=== PATIENT | female | born 1945 | race Caucasian/White ===

== ENCOUNTER → 2017-02-26 | Outpatient (CLI) | payer MEDICARE ==
--- NOTE | 2017-02-27 12:55 | MM ---
Reason for exam: screening (asymptomatic). Last mammogram was performed 1 year and 11 months ago. History: Patient is postmenopausal. Took hormonal contraceptives for 5 years beginning at age 21. Took estrogen for 1 year beginning at age 51. Physical Findings: A clinical breast exam by your physician is recommended on an annual basis and results should be correlated with mammographic findings. MG 3D Screening Mammo W/Cad Bilateral CC and MLO view(s) were taken. Prior study comparison: April 06, 2015, bilateral MG screening mammo w CAD. February 23, 2012, CAD bilateral diagnostic mammogram. There are scattered fibroglandular densities. There is chronic nodularity bilaterally. However 11:30-12 o'clock nodular focal asymmetry in the right breast has increased in size. Also, asymmetric density anterior lateral left CC view appears more defined and partially disperses on tomosynthesis. Regional calcifications in the left breast are unchanged. ASSESSMENT: Incomplete: need additional imaging evaluation, BI-RAD 0 RECOMMENDATION: Special view mammogram of both breasts. If lesion persists on supplemental views, image directed ultrasound is recommended. [facility] will attempt to contact patient to return for supplemental views and ultrasound if indicated. RAJIV
== END | disposition home or self-care (01) ==
LOC: RADMAMWWP 10:18
PROVIDERS: ATTEND Family Medicine
DX: Z12.31 Encounter for screening mammogram for malignant neoplasm of breast (principal)
CPT/HCPCS: 77063; G0202

== ENCOUNTER → 2017-03-19 | Outpatient (CLI) | payer MEDICARE ==
--- NOTE | 2017-03-20 08:51 | MM ---
Reason for exam: additional evaluation requested from abnormal screening. Last mammogram was performed 1 month ago. History: Patient is postmenopausal. Took hormonal contraceptives for 5 years beginning at age 21. Took estrogen for 1 year beginning at age 51. Physical Findings: Nurse did not find any significant physical abnormalities on exam. MG 3D Work Up W/Cad FRED Bilateral LM view(s) were taken. CC and spot compression MLO view(s) were taken of the left breast. Prior study comparison: February 26, 2017, bilateral MG 3d screening mammo w/cad. April 06, 2015, bilateral MG screening mammo w CAD. February 23, 2012, CAD bilateral diagnostic mammogram. There are scattered fibroglandular densities. The questioned asymmetry on the left breast does not persist. The 12 o'clock nodule may correspond to 2 adjacent nodules on the lateral view of the right breast. These results were verbally communicated with the patient and result sheet given to the patient on 03/19/17. ASSESSMENT: Incomplete: need additional imaging evaluation, BI-RAD 0 RECOMMENDATION: Ultrasound of the right breast. (11-1 o'clock)
--- NOTE | 2017-03-20 09:03 | USB ---
Reason for exam: additional evaluation requested from abnormal screening. History: Patient is postmenopausal. Took hormonal contraceptives for 5 years beginning at age 21. Took estrogen for 1 year beginning at age 51. US Breast Workup Limited RT Right breast ultrasound demonstrates a 0.5 x 0.4 x 0.6cm lesion too small to characterize at 11 o'clock, a 0.7 x 0.4 x 0.6cm mixed lesion at 12 o'clock, a 0.6 x 0.4 x 0.5cm mixed lesion at 10:30 and a 0.5 x 0.4 x 0.5cm lesion too small to characterize at 12 o'clock. All of these small masses have a similar appearance and the 12:00 lesions likely correspond to the mammographic finding. Biopsy of the largest 7mm lesion recommended. These results were verbally communicated with the patient and result sheet given to the patient on 03/19/17. ASSESSMENT: Suspicious, BI-RAD 4 RECOMMENDATION: Surgical consultation and ultrasound core biopsy of the right breast. (12 o'clock 7mm lesion) Called Dr. Arevalo with mammographic findings and has scheduled an appointment for the patient for 03/24/17 at 10:[address] Salcedo. PRELIMINARY REPORT CALLED AND FAXED TO DR. SALCEDO ON 03/20/17 AT 300/TP.
== END | disposition home or self-care (01) ==
LOC: RADMAMWWP 14:19
PROVIDERS: ATTEND Family Medicine
DX: R92.8 Other abnormal and inconclusive findings on diagnostic imaging of breast (principal)
CPT/HCPCS: 76642; G0204; G0279

== ENCOUNTER → 2017-04-14 | Day surgery (SDC) | payer MEDICARE ==
[2017-04-14 12:02] VITALS: RESP 16; BMI 40.8
[2017-04-14 13:08] VITALS: BP 150/62; PULSE 77; TEMP 97.2
--- NOTE | 2017-04-14 15:30 | USB ---
EXAMINATION TYPE: US biopsy breast VAD RT DATE OF EXAM: 04/14/2017 CLINICAL HISTORY: R92.8 Abn Mammogram. TECHNIQUE: Ultrasound guided core biopsy of right breast. COMPARISON: 03/19/2017 FINDINGS: The procedure of ultrasound guided core biopsy was explained to the patient. Benefits, alternatives, and risks were discussed. An informed consent was then obtained. The patient was placed in supine positioning for imaging and for the procedure. The overlying skin was prepped and draped in usual sterile fashion. Lidocaine buffered with bicarbonate was used as anesthetic into the skin and subcutaneous tissue up to area of concern in the right breast. A savanna was made with surgical scalpel. Under ultrasound guidance, a 12-gauge vacuum assisted biopsy gun device was used to obtain 5 core samples. Following this, a biopsy clip was left in lesion. The patient tolerated the procedure well without any immediate complication. The patient was kept in the radiology department for short stay after the procedure and then discharged home in stable condition. IMPRESSION: Successful, uncomplicated ultrasound guided core biopsy of area of concern in the right breast, full pathology results to follow. Pathology Results: Benign BREAST, RIGHT, SITE A 12:00, ULTRASOUND GUIDED CORE BIOPSY: FIBROCYSTIC CHANGE ( STROMAL FIBROSIS, CYST FORMATION, APOCRINE METAPLASIA, ADENOSIS, DUCT HYPERPLASIA AND CALCIFICATIONS). FOCAL HISTIOCYTIC INFLAMMATION WITH PIGMENT SUGGESTIVE OF CYST RUPTURE. Recommendation Follow up mammogram of the right breast in 6 months. RAJIV
--- NOTE | 2017-04-15 07:06 | MM ---
Reason for exam: additional evaluation requested from abnormal screening. Last mammogram was performed 1 month ago. History: Patient is postmenopausal. Took hormonal contraceptives for 5 years beginning at age 21. Took estrogen for 1 year beginning at age 51. MG Diagnostic Mammo RT Wo CAD CC and ML view(s) were taken of the right breast. Prior study comparison: March 19, 2017, bilateral MG 3d work up w/cad FRED. February 26, 2017, bilateral MG 3d screening mammo w/cad. ASSESSMENT: Post procedure mammogram for marker placement RECOMMENDATION: Ultrasound of the right breast in 6 months. PENDING PATHOLOGY RESULTS.
== END ==
LOC: RADUSWWP 11:26
PROVIDERS: ATTEND Surgery
DX: N60.11 Diffuse cystic mastopathy of right breast (principal); N60.81 Other benign mammary dysplasias of right breast; N60.21 Fibroadenosis of right breast; N60.91 Unspecified benign mammary dysplasia of right breast; R92.1 Mammographic calcification found on diagnostic imaging of breast; R92.8 Other abnormal and inconclusive findings on diagnostic imaging of breast; Z78.0 Asymptomatic menopausal state
CPT/HCPCS: 88305; 19083; G0206; A4648; J2001

== ENCOUNTER → 2018-09-01 | Outpatient (CLI) | payer MEDICARE ==
--- NOTE | 2018-09-02 09:25 | MM ---
Reason for exam: additional evaluation requested from prior study. Last mammogram was performed 1 year and 5 months ago. History: Patient is postmenopausal. Benign US biopsy breast VAD RT of the right breast, April 14, 2017. Took hormonal contraceptives for 5 years beginning at age 21. Took estrogen for 1 year beginning at age 51. Physical Findings: Nurse did not find any significant physical abnormalities on exam. MG 3D Diag Mammo W/Cad FRED Bilateral CC and MLO view(s) were taken. Prior study comparison: April 14, 2017, right breast MG diagnostic mammo RT wo CAD. March 19, 2017, bilateral MG 3d work up w/cad FRED. The breast tissue is heterogeneously dense. This may lower the sensitivity of mammography. No suspicious calcifications are seen. There is chronic nodularity bilaterally. There is no dominant lesion. No significant new findings when compared with previous films. These results were verbally communicated with the patient and result sheet given to the patient on 09/01/18. ASSESSMENT: Benign, BI-RAD 2 RECOMMENDATION: Routine screening mammogram of both breasts in 1 year.
== END | disposition home or self-care (01) ==
LOC: RADMAMWWP 12:53
PROVIDERS: ATTEND Family Medicine
DX: R92.8 Other abnormal and inconclusive findings on diagnostic imaging of breast (principal)
CPT/HCPCS: 77066; G0279; 77062

== ENCOUNTER → 2022-03-14 | Outpatient (CLI) | payer MEDICARE ==
--- NOTE | 2022-03-14 11:00 | P.GSHP ---
History of Present Illness H&P Date: 03/14/22 Chief Complaint: Radiographic abnormality right breast Caren is a 76-year-old white female seen in consultation for Dr. Arevalo regarding radiographic abnormality in the right breast. Her last bilateral mammogram was and 4120 which revealed an area of concern in the right breast for which an ultrasound was recommended. No lesions of concern were identified in the left breast. An ultrasound was done of the right breast on [id number] on this at the 10 o'clock position 8 cm from the nipple there was a 9 x 9 mm hypoechoic lesion, 10 o'clock position second similar but smaller lesion 5 x 4 mm, 11 o'clock position 5 cm from the nipple 6 x 6 mm gently lobulated lesion 12 o'clock position three round to oval hypoechoic lesions present in close proximity measuring between 4-5 mm Biopsy of two sites 10:00 and 11:00 lesions recommended for biopsy. The patient was not aware that she needed a biopsy until she saw Dr. Arevalo several weeks ago and biopsy was recommended at that time. Note from Dr. Arevalo from 45 reviewed. She does not feel any new lumps masses or nodules of concern in either breast. She does not complain of any nipple discharge or skin changes. She has not had any trauma or infection and the breast recently. She has had a right breast core biopsy in the past which was benign. Caffiene; 2-3 cups/day nicotine: none chocolate: weekly BCP: 5 years in past hormones: < 1 year at menopause Family history: sister: ovarian Hormonal History: menarche; 14 , breast fed: yes, age at first : 25 menopause: 59 BCP: 5 years Surgical history: gallbladder cardiac cath Medical history: HTN obesity macular degeneration Social History: nicotine: none alcohol: none drugs:none - Constitutional Constitutional: Denies chills, Denies fever - EENT Comment: Bilateral macular degeneration Ears: bilateral: decreased hearing, tinnitus Ears, nose, mouth and throat: Denies headache, Denies sore throat - Breasts Breasts: bilateral: as per HPI - Cardiovascular Cardiovascular: Denies chest pain, Denies shortness of breath - Respiratory Respiratory: Reports cough - Gastrointestinal Gastrointestinal: Denies abdominal pain, Denies diarrhea, Denies nausea, Denies vomiting - Genitourinary (Female) Genitourinary: Denies dysuria, Denies hematuria - Menstruation Menstruation: Reports postmenopausal - Musculoskeletal Musculoskeletal: Denies myalgias - Integumentary Integumentary: Denies pruritus, Denies rash - Neurological Neurological: Denies numbness, Denies weakness - Psychiatric Psychiatric: Denies anxiety, Denies depression - Endocrine Endocrine: Denies fatigue, Denies weight change - Hematologic/Lymphatic Comment: none - Allergic/Immunologic Allergic/Immunologic: Reports seasonal allergies Past Medical History Past Medical History: Eye Disorder, Hyperlipidemia, Hypertension Additional Past Medical History / Comment(s): past history of rheumatic fever age 13. WBC elevated. Macular degeneration Left eye History of Any Multi-Drug Resistant Organisms: None Reported Past Surgical History: Cholecystectomy, Heart Catheterization Past Anesthesia/Blood Transfusion Reactions: No Reported Reaction Past Psychological History: No Psychological Hx Reported Smoking Status: Never smoker Past Alcohol Use History: None Reported Past Drug Use History: None Reported Medications and Allergies Home Medications Medication Instructions Recorded Confirmed Type Calcium Carbonate/Vitamin D3 1 each PO DAILY 04/13/17 03/14/22 History [Caltrate 600 Plus D3 Tablet] Ergocalciferol (Vitamin D2) 50,000 unit PO QMONTH 04/13/17 03/14/22 History [Vitamin D2] Furosemide [Lasix] 20 mg PO DAILY PRN 04/13/17 03/14/22 History Losartan Potassium 100 mg PO DAILY 04/13/17 03/14/22 History Multivitamin [Multiple Vitamins] 1 each PO DAILY 04/13/17 03/14/22 History Pravastatin Sodium [Pravachol] 20 mg PO DAILY 04/13/17 03/14/22 History Verapamil HCl [Verapamil ER] 240 mg PO DAILY 04/13/17 03/14/22 History aMILoride-HCTZ 5-50 mg [Moduretic 1 each PO DAILY 04/13/17 03/14/22 History 5-50] Oxybutynin Chloride [Ditropan] 5 mg PO TID 04/14/17 03/14/22 History Vit C/E/Zn/Coppr/Lutein/Zeaxan 1 tab PO DAILY 03/14/22 03/14/22 History [Preservision Areds 2 Chew Tab] Allergies Allergy/AdvReac Type Severity Reaction Status Date / Time Penicillins Allergy Rash/Hives Verified 03/14/22 10:27 atenolol [From Tenormin] AdvReac Hallucinati Verified 03/14/22 10:27 ons propranolol [From Inderal LA] AdvReac Hallucinati Verified 03/14/22 10:27 ons Surgical - Exam Vital Signs Temp Pulse Resp BP Pulse Ox 98.5 F 70 18 140/81 94 L 03/14/22 10:29 03/14/22 10:29 03/14/22 10:29 03/14/22 10:29 03/14/22 10:29 BMI 43.5 - General no distress - Eyes normal ocular movement - Neck trachea midline - Respiratory normal respiratory effort, clear to auscultation - Cardiovascular Rhythm: regular Heart Sounds: normal: S1, S2 - Abdomen Abdomen: soft, non tender, no guarding, no rigid, no rebound - Integumentary normal turgor - Musculoskeletal normal gait - Psychiatric oriented to time, oriented to person, oriented to place, speech is normal, memory intact Breast Exam: BRA: 44C inspection: right breast larger than left, bilateral grade 3 ptosis palpation: right breast: Multiple positional exam fibrocystic changes no dominant masses or nodules of concern Right axilla: No adenopathy of concern Left breast: Multi-positional exam fibrocystic changes no dominant masses or nodules of concern Left axilla: No adenopathy of concern Results Mammogram results reviewed Assessment and Plan Assessment: Impression: Fibrocystic breast changes Radiographic abnormality from August 2021 and January 2021 Hypertension Macular degeneration Plan: I have recommended repeating bilateral mammogram and right breast ultrasound at this time and biopsy dependent on most recent radiographic studies. The patient and her daughter are aware and the mammogram is being performed today. I will see the patient again after the mammogram and ultrasound are done and further recommendation to follow. CC: Dr. Arevalo
[2022-03-14 11:04] VITALS: BP 140/81; PULSE 70; RESP 18; TEMP 98.5
== END ==
LOC: WWCWWP 10:08
PROVIDERS: ATTEND Surgery
DX: N60.11 Diffuse cystic mastopathy of right breast (principal); N60.12 Diffuse cystic mastopathy of left breast; I10 Essential (primary) hypertension; H35.30 Unspecified macular degeneration; E66.9 Obesity, unspecified; E78.5 Hyperlipidemia, unspecified; Z68.41 Body mass index [BMI] 40.0-44.9, adult; Z88.0 Allergy status to penicillin; Z88.8 Allergy status to other drugs, medicaments and biological substances

== ENCOUNTER → 2022-03-14 | Outpatient (CLI) | payer MEDICARE ==
--- NOTE | 2022-03-14 13:34 | MM ---
Reason for exam: additional evaluation requested from prior study. Last mammogram was performed 3 years and 6 months ago. History: Patient is postmenopausal. Benign US biopsy breast VAD RT of the right breast, April 14, 2017. Took hormonal contraceptives for 5 years beginning at age 21. Took estrogen for 1 year beginning at age 51. Physical Findings: A clinical breast exam by your physician is recommended on an annual basis and results should be correlated with mammographic findings. MG 3D Diag Mammo W/Cad FRED Bilateral CC and MLO view(s) were taken. Prior study comparison: September 01, 2018, bilateral MG 3d diag mammo w/cad FRED. April 14, 2017, right breast MG diagnostic mammo RT wo CAD. The breast tissue is heterogeneously dense. This may lower the sensitivity of mammography. Stable benign calcifications bilaterally. There is chronic nodularity bilaterally. Results were given to the patient verbally at the time of the exam. ASSESSMENT: Benign, BI-RAD 2 RECOMMENDATION: Follow-up diagnostic mammogram of both breasts in 6 months. Ultrasound core biosy x 2 per ultrasound report of right breast 08/15/21.
--- NOTE | 2022-03-14 13:35 | USB ---
Reason for exam: additional evaluation requested from prior study. History: Patient is postmenopausal. Benign US biopsy breast VAD RT of the right breast, April 14, 2017. Took hormonal contraceptives for 5 years beginning at age 21. Took estrogen for 1 year beginning at age 51. Physical Findings: A clinical breast exam by your physician is recommended on an annual basis and results should be correlated with mammographic findings. US Breast Limited RT Right limited breast ultrasound including focal area of concern, retroareolar and axilla demonstrates a 11 x 7 x 12mm oval, cystic lesion at 10 o'clock and a 5 x 4 x 7mm oval, cystic lesion at 11 o'clock. Scanned 10 and 11 o'clock right breast. Results were given to the patient verbally at the time of the exam. ASSESSMENT: Probably benign, BI-RAD 3 RECOMMENDATION: Ultrasound of the right breast in 6 months.
== END | disposition home or self-care (01) ==
LOC: RADMAMWWP 10:58
PROVIDERS: ATTEND Surgery
DX: R92.1 Mammographic calcification found on diagnostic imaging of breast (principal); N60.01 Solitary cyst of right breast; Z78.0 Asymptomatic menopausal state
CPT/HCPCS: 77066; 76642; G0279; 77062